=== PATIENT | female | born 1980 | race Caucasian/White ===

== ENCOUNTER 2016-08-15 09:42 | Day surgery (SDC) | payer OTHER ==
[~2016-08-15 09:42] MED LIST: PROPOFOL INJ 200 MG/20 ML VIAL IV ONE
[2016-08-15 11:16] VITALS: BP 118/74
--- NOTE | 2016-08-15 14:38 | Operative Report ---
Operative Report DATE OF SURGERY: 08/15/16 Operative Report: The risks, benefits and alternatives of the procedure including risks of bleeding, perforation requiring surgery are explained to the patient detail and informed consent is obtained. Patient is taken back to the endoscopy suite and placed in a left, lateral decubital position. Timeout is called. Propofol medications administered. A rectal examination was done which did not reveal any masses, tears or fissures. An Olympus video scope was inserted into the patient's rectum. The scope was then gradually advanced all the way to the cecum. The cecum was identified by the usual anatomical landmarks including the ileocecal valve as well as the appendiceal office. Photodocumentation is obtained. The scope was then sequentially pulled back creative rest segments of the colon including the ascending colon, hepatic flexure, transverse colon, splenic flexure, descending colon and finally into the rectosigmoid portions of the colon. Retroflexion maneuvers performed. Left side of the colon has been adequately prepped, right side of the colon has a poor prep PREOPERATIVE DIAGNOSIS: Change in bowel habits POSTOPERATIVE DIAGNOSIS: Mild right-sided inflammation status post biopsy. No obstruction is seen. No AVMs, diverticulosis noted OPERATION: Colonoscopy with biopsy SURGEON: ANTHONY KITCHEN ANESTHESIA: LMAC TISSUE REMOVED OR ALTERED: Right-sided colon mucosa specimens obtained COMPLICATIONS: None. ESTIMATED BLOOD LOSS: none. INTRAOPERATIVE FINDINGS: As described above. PROCEDURE: Patient tolerated the procedure well. No immediate postprocedure complications are noted. Patient is discharged in good condition. Discharge date 08/15/2016. Discharge diet: Regular. Discharge activity: Regular. 2-3 week follow-up to discuss findings. Patient is instructed to call the office or proceed to the emergency room should there be any further problems or questions. We'll await on biopsies.
--- NOTE | 2016-08-22 13:50 | PDOC H&P ---
General Chief Complaint: patient is here for a change in her bowel habits no weight loss has chronic constipation occasional blood in stool that could due to hemorrhoids patient states no family history of colon cancer - Current Medications/Allergies Home Medications: Diphenhydramine HCl [Benadryl] 25 mg PO QHS PRN 08/12/16 Gabapentin 100 mg PO BID 08/12/16 Ibuprofen [Motrin 800 mg Tablet] 800 mg PO Q8H PRN 08/12/16 Thyroid,Pork [[place] Thyroid] 30 mg PO QAM 08/12/16 Tramadol HCl 50 mg PO DAILY PRN 08/12/16 Linaclotide [Linzess] 145 mcg PO ASDIR 08/15/16 Allergies/Adverse Reactions: No Known Allergies Allergy (Verified 08/15/16 09:33) Past Medical History Cardiac Medical History: Denies: Coronary Artery Disease, Myocardial Infarction, Hypertension Pulmonary Medical History: Denies: Asthma, Bronchitis, Chronic Obstructive Pulmonary Disease (COPD), Pneumonia Neurological Medical History: Denies: Seizures Musculoskeltal Medical History: Denies: Arthritis Hematology: Denies: Anemia Family History Parental Family History Reviewed: Yes Children Family History Reviewed: Unknown Sibling(s) Family History Reviewed.: Unknown Social History Smoking Status: Never Smoker Frequency of Alcohol Use: None Drugs: None Physical Exam Vital Signs: Temp Pulse Resp BP Pulse Ox 97.4 F 60 18 118/74 98 08/15/16 11:07 08/15/16 11:07 08/15/16 11:07 08/15/16 11:07 08/15/16 11:07 General appearance: PRESENT: no acute distress, well-developed, well-nourished Head exam: PRESENT: atraumatic, normocephalic Eye exam: PRESENT: EOMI, PERRLA Mouth exam: PRESENT: moist Throat exam: ABSENT: tonsillar exudate, tonsillogmegaly Neck exam: ABSENT: meningismus, tenderness, thyromegaly Respiratory exam: PRESENT: clear to auscultation haylie Cardiovascular exam: PRESENT: RRR, +S1, +S2 Pulses: PRESENT: normal carotid pulses GI/Abdominal exam: PRESENT: normal bowel sounds, soft Extremities exam: ABSENT: joint swelling Musculoskeletal exam: PRESENT: full ROM Neurological exam: PRESENT: oriented to time, oriented to situation, reflexes normal, CN II-XII grossly intact Skin exam: PRESENT: normal color Impression/Plan Impression: needs colonoscopy to exclude possible obstruction Risks, benefits and alternatives are explained to the patient in detail further recommendations to follow would benefit from Propofol sedation Plan: as noted above
== END 2016-08-15 11:08 | disposition home or self-care (01) ==
LOC: END 09:42
PROVIDERS: ATTEND Internal Medicine Gastroenterology
PROC: 0DBF8ZX Excision of Right Large Intestine, Via Natural or Artificial Opening Endoscopic, Diagnostic (ICD-10-PCS; principal; 2016-08-15 12:00)
DX: K52.9 Noninfective gastroenteritis and colitis, unspecified (principal); K57.30 Diverticulosis of large intestine without perforation or abscess without bleeding; K59.04 Chronic idiopathic constipation; K92.1 Melena; Z86.010 Personal history of colon polyps; E03.9 Hypothyroidism, unspecified; E56.9 Vitamin deficiency, unspecified; M19.90 Unspecified osteoarthritis, unspecified site; Z79.1 Long term (current) use of non-steroidal anti-inflammatories (NSAID); Z87.891 Personal history of nicotine dependence; Z79.899 Other long term (current) drug therapy
CPT/HCPCS: 45380; 88305 ×2; J2704; 810